=== PATIENT | female | born 1965 | race Caucasian/White ===

== ENCOUNTER 2018-05-12 21:00 | Emergency (ER) | payer BC, SELFPAY ==
[2018-05-12 21:01] VITALS: BP 155/90; PULSE 112; RESP 16; TEMP 36.4; O2SAT 95; BMI 37.2
[2018-05-12 21:32] VITALS: BP 132/82; PULSE 92; RESP 16; O2SAT 96
--- NOTE | 2018-05-12 21:32 | ED.RN ---
NO OLD EKGS IN MUSE.
[2018-05-12 22:03] VITALS: BP 140/84; PULSE 104; RESP 16; O2SAT 95
--- NOTE | 2018-05-12 22:07 | EKG12_ITS ---
Test Reason : CP Blood Pressure : / mmHG Vent. Rate : 097 BPM Atrial Rate : 097 BPM P-R Int : 134 ms QRS Dur : 092 ms QT Int : 360 ms P-R-T Axes : 051 058 044 degrees QTc Int : 457 ms Normal sinus rhythm Incomplete right bundle branch block Borderline ECG Confirmed by SAHIL JARAMILLO, KUMAR ([id number]), writer editor CORI SLADE ([id number]) on 05/16/2018 12:52:30 PM Referred By: TL Confirmed By:KUMAR BAXTER MD
--- NOTE | 2018-05-12 22:09 | RAD_ITS ---
STUDY: X-RAY CHEST REASON FOR EXAM: Female, 52 years old. Mid chest pain radiating to the right side. TECHNIQUE: Portable upright chest COMPARISON: None. FINDINGS: The lungs are clear and expanded. Normal cardiomediastinal silhouette, harper and pleural margins. No acute osseous or upper abdominal process. RAD/Chest 1 View (Portable) IMPRESSION: No acute cardiopulmonary process. Electronically Signed: Rosas Duran, at 23:01 EST Tel , Service support ,
[2018-05-12 22:13] VITALS: O2SAT 94
[2018-05-12 22:20] LABS: Absolute Lymphocyte Count 2.98 X10^3/ul (0.83-4.51); Absolute Neutrophil Count 6.6 X10^3/uL (2.0-7.7); Basophil# 0.02 X10^3/uL; Basophil% 0.2 % (0-1); Eosinophil# 0.14 X10^3/uL; Eosinophils% 1.4 % (0-5); Hematocrit 41.5 % (37-47); Lymphocyte # 2.98 X10^3/ul (4.0); Lymphocyte % 28.8 % (19-41); Mean Corp Hgb Conc 33.7 g/gl (32-36); Mean Corpuscular Hgb 29.4 pg (27.0-32.0); Mean Platelet Vol. 11.6 fl (6.2-12.0); Monocyte# 0.56 X10^3/uL; Monocyte% 5.4 % (0-10); Neutrophil # 6.64 X10^3/uL (2.7-7.7); Neutrophil % 64.1 % (47-70); POSITIVE COUNT NO; POSITIVE DIFFERENTIAL NO; POSITIVE MORPHOLOGY NO; Platelet Count 231 K/mm3 (150-450); RBC Distribution Width CV 12.7 % (11.6-14.6); RBC Distribution Width SD 40.9 fl (35.1-43.9); Red Blood Count 4.77 M/mm3 (4.2-5.4); White Blood Count 10.4 K/mm3 (4.4-11.0)
[2018-05-12 22:34] LABS: AST(SGOT) 49 U/L (15-37); Alanine Aminotransfer ALT/SGPT 53 U/L (13-56); Albumin, Serum 3.7 g/dL (3.2-5.0); Alkaline Phosphatase 70 U/L (45-117); Anion Gap 12 (5-15); BUN 10 mg/dL (7-18); BUN/Creat Ratio 14.4 RATIO (10-20); Calcium,Total 8.7 mg/dL (8.5-10.1); Chloride 107 mmol/L (98-107); EST Glomerular Filtration Rate 95 mL/min (>60); Est Glom Filt Rate - Afr Amer 114 mL/min (>60); Estimated Creatinine Clearance 79.54 ml/min; Globulin 3.8 g/dL (2.2-4.2); Glucose 106 mg/dL (74-106); Lipase 97 U/L (73-393); Potassium 3.6 mmol/L (3.5-5.1); Protein, Total 7.5 g/dL (6.4-8.2); Sodium Level 142 mmol/L (136-145)
[2018-05-12 22:57] VITALS: BP 136/67; PULSE 89; RESP 16; O2SAT 96
--- NOTE | 2018-05-12 23:34 | ED.VISSUMM ---
- ER Visit Summary Date of Service: 05/12/18 Chief Complaint: Epigastric pain History of Present Illness: The patient is a 52 F with epigastric pain that started about an hour and a half prior to arrival. The pain radiates up to her substernal area and then in a bandlike pattern over her upper abdomen towards her back. Symptoms started after dinner. She had a fairly healthy dinner with salmon, vegetables, and rice. She had some nausea as well. No fevers or jaundice. No shortness of breath. Patient has had multiple episodes like this in the past since 2016. Initially when she had this, she had elevated liver enzymes. She was admitted and had a workup. She said her workup was otherwise unremarkable. However, she has had continued episodes intermittently. Her last one was in March 2018. The patient does have a history of cholecystectomy in 2015. She had a hysterectomy. She denies any history of ACS, PE, or dissection. She does walk 13,000 steps per day and she denies any chest pain or shortness of breath with walking. She has not had a stress test or cardiac catheterization. She does have a family history of heart disease. She denies any immobilization, recent hospitalization, calf pain, or leg swelling. Physical Examination: Afebrile and vital signs are unremarkable. Blood pressure 132/82. She is sitting and appears comfortable. Skin appears normal without diaphoresis or pallor. Heart regular rate and rhythm. Lungs clear. Abdomen is tender in the epigastric region. No guarding or rebound. Back is nontender. Calves soft and supple. Test Results: EKG showed sinus rhythm with an incomplete right bundle branch block pattern at a rate of 97. CBC, CMP, lipase, troponin unremarkable except for an AST of 49. Chest x-ray was unremarkable. Emergency Department Course and Treatment: Patient was placed on a monitor. She declined pain medicine and nausea medicine while awaiting results. Patient's symptoms were concerning for GI, specifically hepatobiliary pathology. I also considered cardiac, respiratory, vascular pathologies, but these were thought to be less likely based on her symptoms, exam findings, and risk factors. Her workup was unremarkable. Her vital signs remained stable. She declined pain and nausea medicine. I do not believe an abdominal CT would provide any useful information and I do not believe the benefits would outweigh the risks. I discussed this with the patient. I have low suspicion for ACS. Heart score is a 3. I offered repeat troponin, but after discussion with the patient, I do not think this would be helpful. I do not believe she has a PE. Her only risk factor would be her age. There is nothing to suggest aortic pathology. I cannot find any indication for further diagnostic testing, hospitalization, or expert consultation. I will advised outpatient follow-up for further care. She will follow-up with her doctor in [place]. I advised her that although she is low risk for any life-threatening pathology, she is not zero risk, and she should return if she has any new or worsening issues right away for further evaluation. Patient voiced understanding and agreement with the plan. Treatment Plan: Above Disposition: Discharge Impression: 1. Epigastric pain This note was generated with [employer] dictation software. It may contain incorrect words, spelling, and punctuation that were not noted in review of the chart prior to signing ED Disposition - Plan for ED Patient: Chief Complaint: Chest Pain Referrals: [facility] Doctor,Out of [Primary Care Provider] -
--- NOTE | 2018-05-12 23:42 | DCINST.ED_ITS ---
ED Disposition - Plan for ED Patient: Chief Complaint: Chest Pain Instructions: ED Epigastric Pain [facility] Referrals: [facility] Doctor,Out of [Primary Care Provider] -
--- NOTE | 2018-05-12 23:42 | ED.DCSUM_ITS ---
- ER Visit Summary Date of Service: 05/12/18 Chief Complaint: Epigastric pain History of Present Illness: The patient is a 52 F with epigastric pain that started about an hour and a half prior to arrival. The pain radiates up to her substernal area and then in a bandlike pattern over her upper abdomen towards her back. Symptoms started after dinner. She had a fairly healthy dinner with salmon, vegetables, and rice. She had some nausea as well. No fevers or jaundice. No shortness of breath. Patient has had multiple episodes like this in the past since 2016. Initially when she had this, she had elevated liver enzymes. She was admitted and had a workup. She said her workup was otherwise unremarkable. However, she has had continued episodes intermittently. Her last one was in March 2018. The patient does have a history of cholecystectomy in 2015. She had a hysterectomy. She denies any history of ACS, PE, or dissection. She does walk 13,000 steps per day and she denies any chest pain or shortness of breath with walking. She has not had a stress test or cardiac catheterization. She does have a family history of heart disease. She denies any immobilization, recent hospitalization, calf pain, or leg swelling. Physical Examination: Afebrile and vital signs are unremarkable. Blood pressure 132/82. She is sitting and appears comfortable. Skin appears normal without diaphoresis or pallor. Heart regular rate and rhythm. Lungs clear. Abdomen is tender in the epigastric region. No guarding or rebound. Back is nontender. Calves soft and supple. Test Results: EKG showed sinus rhythm with an incomplete right bundle branch bl ock pattern at a rate of 97. CBC, CMP, lipase, troponin unremarkable except for an AST of 49. Chest x-ray was unremarkable. Emergency Department Course and Treatment: Patient was placed on a monitor. She declined pain medicine and nausea medicine while awaiting results. Patient's symptoms were concerning for GI, specifically hepatobiliary pathology. I also considered cardiac, respiratory, vascular pathologies, but these were thought to be less likely based on her symptoms, exam findings, and risk factors. Her workup was unremarkable. Her vital signs remained stable. She declined pain and nausea medicine. I do not believe an abdominal CT would provide any useful information and I do not believe the benefits would outweigh the risks. I discussed this with the patient. I have low suspicion for ACS. Heart score is a 3. I offered repeat troponin, but after discussion with the patient, I do not think this would be helpful. I do not believe she has a PE. Her only risk factor would be her age. There is nothing to suggest aortic pathology. I cannot find any indication for further diagnostic testing, hospitalization, or expert consultation. I will advised outpatient follow-up for further care. She will follow-up with her doctor in [place]. I advised her that although she is low risk for any life-threatening pathology, she is not zero risk, and she should return if she has any new or worsening issues right away for further evaluation. Patient voiced understanding and agreement with the plan. Treatment Plan: Above Disposition: Discharge Impression: 1. Epigastric pain This note was generated with [employer] dictation software. It may contain incorrect words, spelling, and punctuation that were not noted in review of the chart prior to signing ED Disposition - Plan for ED Patient: Chief Complaint: Chest Pain Referrals: [facility] Doctor,Out of [Primary Care Provider] -
[2018-05-12 23:52] VITALS: BP 132/77; PULSE 93; RESP 16; O2SAT 96; O2SAT 98
== END 2018-05-12 23:54 | disposition home or self-care (01) ==
PROVIDERS: Emergency Provider Emergency Medicine
DX: R10.13 Epigastric pain (principal); I45.10 Unspecified right bundle-branch block; Z90.49 Acquired absence of other specified parts of digestive tract; Z90.710 Acquired absence of both cervix and uterus; Z82.49 Family history of ischemic heart disease and other diseases of the circulatory system; R11.0 Nausea; M54.9 Dorsalgia, unspecified
CPT/HCPCS: 71045; 80053; 83690; 84484; 85025; 93005; 99284